=== PATIENT | male | born 1955 | race Caucasian/White ===

== ENCOUNTER 2017-04-25 14:04 | Inpatient (IN) | payer BC, OTHER ==
[~2017-04-25] VITALS: Ht 167.6 cm; Wt 68.0 kg
[2017-04-25] MEDS ORDERED: NICOTINE POLACRILEX 4 MG GUM-PK OF TEN BC PRN (20:30)
[2017-04-25] MEDS ORDERED: ONDANSETRON ODT 4 MG TAB.RAPDIS SL PRN (20:30)
[2017-04-25] MEDS ORDERED: MIRALAX 17 GM POWD.PACK PO PRN (20:30)
[2017-04-25] MEDS ORDERED: LORAZEPAM 2 MG/1 ML VIAL IM PRN (20:30)
[2017-04-25] MEDS ORDERED: LOPERAMIDE HCL 2 MG CAPSULE PO PRN ×2 (20:30)
[2017-04-25] MEDS ORDERED: MAG HYDROX/AL HYDROX/SIMETH 30 ML LIQUID UDC PO PRN (20:30)
[2017-04-25] MEDS ORDERED: MAGNESIUM HYDROXIDE 30 ML LIQUID UDC PO PRN (20:30)
[2017-04-25] MEDS ORDERED: LORAZEPAM 1 MG TABLET PO PRN ×2 (20:30)
[2017-04-25] MEDS ORDERED: ONDANSETRON 4 MG/2 ML VIAL IM PRN (20:30)
[2017-04-25] MEDS ORDERED: NICOTINE 14 MG/24HR PATCH TD PRN (20:30)
[2017-04-25] MEDS ORDERED: DICYCLOMINE HCL 20 MG TABLET PO PRN (20:30)
[2017-04-25 21:57] LABS: BASOPHILS % (AUTO) 0.8 % (0.0-2.0); EOSINOPHILS # (AUTO) 0.5 K/uL (0.0-0.7); EOSINOPHILS % (AUTO) 9.7 % (0.0-7.0); HEMATOCRIT 44.2 % (36.7-47.1); LYMPHOCYTES # (AUTO) 1.4 K/uL (20.0-40.0); LYMPHOCYTES % (AUTO) 25.7 % (20.5-51.5); MEAN CORPUSCULAR HEMOGLOBIN 31.7 uug (23.8-33.4); MEAN CORPUSCULAR HGB CONC 34 g/dL (32.5-36.3); MEAN CORPUSCULAR VOLUME 93.4 fL (73.0-96.2); MONOCYTES # (AUTO) 0.8 K/uL (2.0-10.0); MONOCYTES % (AUTO) 14.5 % (0.0-11.0); NEUTROPHILS # (AUTO) 2.6 K/uL (1.8-8.9); NEUTROPHILS % (AUTO) 49.3 % (38.5-71.5); PLATELET COUNT (AUTO) 240 K/uL (152-348); RED BLOOD CELL COUNT(AUTO) 4.73 MIL/uL (4.06-5.63); WHITE BLOOD COUNT (AUTO) 5.3 K/uL (3.6-10.2)
[2017-04-25] MEDS ORDERED: LORAZEPAM 1 MG TABLET PO SCH (22:00)
[2017-04-25] MEDS ORDERED: THIAMINE HCL 200 MG/2 ML VIAL IM ONE (22:00)
--- NOTE | 2017-04-25 22:00 | NUR ---
PRE - ADMISSION NOTE : Patient is 61 year old male came to [facility] for supervised withdrawal from alcohol on 04/25/2017. Pt. is NKA, FULL CODE, on Reg.Diet. He denies history of seizures , confirms history of passive SI in May 2014 after divorce , history of withdrawal induced delirium, history of accidental intoxication-induced overdoses. His Primary Care Provider is in [place], [place]. Longest sober period was 2 years, [id number]. He states his alcohol use has negatively affected his social, mental and professional life. Upon assessment, pt is alert and oriented x4, speech is clear and audible. Pt noted to be anxious, restless, worried, intoxicated without acute withdrawal signs. Heart rate regular. Denies chest pain or SOB. PERRLA, breathing is even and unlabored, lung sounds clear. Denies nausea, vomiting, tactile disturbances, visual or auditory hallucinations at this time. Abdomen is soft and non-distended. Bowel sounds present in all quadrants, last BM 04/25/17. Pt reports that BM is regular. Pt's skin is warm, dry and intact, no open skin damages. RQ=861/100, HR=97, RR=16, Spo2=97%, denies pain. Ltelkj=[id number], Height=56. CIWA=9. Pt. will be admitted to the unit.
[2017-04-25 22:09] LABS: *AMPHETAMINE, URINE NEGATIVE (NEGATIVE); *BARBITURATE, URINE NEGATIVE (NEGATIVE); *CANNABINOID, URINE NEGATIVE (NEGATIVE); *COCCAINE, URINE NEGATIVE (NEGATIVE); *OPIATE, URINE POSITIVE (NEGATIVE); *PHENCYCLIDINE SCREEN,URINE NEGATIVE (NEGATIVE)
[2017-04-25 22:11] LABS: ALANINE AMINOTRANSFERASE 24 U/L (16-63); ALKALINE PHOSPHATASE 72 U/L (50-136); AMYLASE 41 U/L (25-115); ASPARTATE AMINOTRANSFERASE 20 U/L (15-37); BILIRUBIN,TOTAL 0.3 mg/dL (0.2-1.0); CARBON DIOXIDE 29 mmol/L (21-32); ETHANOL < 3 MG/DL (0-0); GLUCOSE 90 mg/dL (74-106); MAGNESIUM 2.1 mg/dL (1.8-2.4); TOTAL PROTEIN, SERUM 7.8 g/dL (6.4-8.2); UREA NITROGEN, BLOOD 19 mg/dL (7-18)
[2017-04-25 22:29] LABS: CHLORIDE 105 mmol/L (98-107)
[2017-04-25] MEDS: diphenhydrAMINE 50 MG CAPSULE PO PRN (22:48)
[2017-04-25] MEDS: CLONIDINE HCL 0.1 MG TABLET PO PRN (22:49)
--- NOTE | 2017-04-25 23:00 | NUR ---
PRN BENADRYL, CATAPRES Pt. complains of difficulty falling asleep, insomnia, TL=636/100. PRN BENADRYL, CATAPRES given as ordered. Safety measures in place : bed on lowest position with side rails x2 up for safety, call light within reach. Will continue to monitor closely and offer help.
--- NOTE | 2017-04-25 23:30 | NUR ---
ADMISSION NOTE : Patient is 61 year old male admitted for supervised withdrawal from alcohol on 04/25/2017. Pt. is NKA, FULL CODE, on Reg.Diet. He denies history of seizures , confirms history of passive SI in May 2014 after divorce , his Primary Care Provider is in [place], [place]. Pt. brought his home meds, see PC infos for details. Medications have been reconciled. Longest sober period was 2 years, [id number]. He states his alcohol use has negatively affected his social, mental and professional life. Upon assessment, pt is alert and oriented x4, speech is clear and audible. Pt noted to be anxious, restless, worried, intoxicated without acute withdrawal signs. Heart rate regular. Denies chest pain or SOB. PERRLA, breathing is even and unlabored, lung sounds clear. Denies nausea, vomiting, tactile disturbances, visual or auditory hallucinations at this time. Abdomen is soft and non-distended. Bowel sounds present in all quadrants, last BM 04/25/17. Pt reports that BM is regular. Pt's skin is warm, dry and intact, no open skin damages. XC=246/100, HR=97, RR=16, Spo2=97%, denies pain. Ohpsxp=[id number], Height=56. CIWA=9. Pt oriented to room and unit. Safety measures in place, side rails up x 2 . Will continue to monitor closely and offer help. Substance use history per patient report: 1) alcohol (whiskey) - pt. reports last use was on 04/25/17, drinking 500ml daily for the past 2years., started drinking s.1997. Pt. smokes 20 cig. QD TX history: Multiple attempts of detox , last one - Outpatient withdrawal management (under PCP supervision). Past Medical History : HTN, cervical spine fusion, wrist surgery, percutaneous coronary intervention with stent placement x4; depression, history of withdrawal induced delirium, insomnia, history of accidental intoxication-induced overdoses , CAD. Family History : Alcoholism, Obesity, HTN, DM II , heart disease.
[2017-04-26] VITALS (7 sets, daily range): BP systolic 126–160; BP diastolic 85–100
--- NOTE | 2017-04-26 | NUR ---
RE-ASSESSMENT JORGE SIMMS Pt. is sleeping, RR=16, unlabored and even . Safety measures in place : bed on lowest position with side rails x2 up for safety, call light within reach. Will continue to monitor closely and offer help.
[2017-04-26] MEDS ORDERED: [UNRECOGNIZED DRUG - SUPPLY] (04:13)
[2017-04-26] MEDS ORDERED: MELA5TAB PO (04:13)
[2017-04-26] MEDS ORDERED: AMLO5TAB4 PO (04:13)
[2017-04-26] MEDS ORDERED: OMEP20TA20 PO (04:13)
[2017-04-26] MEDS ORDERED: ASPI81TA31 PO (04:13)
--- NOTE | 2017-04-26 06:31 | NUR ---
END OF SHIFT NOTE : Patient is 61 year old male admitted for supervised withdrawal from alcohol on 04/25/2017. He denies history of seizures , confirms history of passive SI in May 2014 after divorce . Pt. placed on 5 day Subutex and Ativan taper. Pt. is compliant with a TX plan, PRNs given during nightman : BENADRYL,. CIWA, taken when pt. was awake, last CIWA=9, at 04:00. Prnwva=437 , voided x2, slept=3 hours. Safety measures in place : bed on lowest position with side rails x2 up for safety, all light within reach. Will continue to monitor closely and offer help.
--- NOTE | 2017-04-26 07:47 | NUR ---
Start of shift note- Patient is 61 year old male admitted for supervised withdrawal from alcohol on 04/25/2017. He denies history of seizures, confirms history of passive SI in May 2014 after divorce . Pt. placed on 5 day Subutex and Ativan taper. Pt in bed appears to be asleep. Arousable to name. Denies c/o N/V/diarrhea. Respirations even and unlabored. Pt. 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 Last CIWA-9. Safety measures in place : bed on lowest position with side rails x2 up for safety, all light within reach. Will continue to monitor closely and offer help. Addendum: 04/26/17 at 1109 by Shayna Rodríguez RN not on subutex, only Ativan taper
[2017-04-26] MEDS: FOLIC ACID 1 MG TABLET PO SCH (08:48)
[2017-04-26] MEDS: MULTIVITAMINS,THERAPEUTIC TABLET PO SCH (08:48)
[2017-04-26] MEDS: THIAMINE HCL 100 MG TABLET PO SCH (08:48)
[2017-04-26] MEDS: LORAZEPAM 1 MG TABLET PO SCH ×4 (08:59→21:14)
[2017-04-26] MEDS ORDERED: TUBERCULIN,PURIF.PROT.DERIV. 5 TU/0.1 ML TEST ID ONE (09:00)
[2017-04-26] MEDS: OMEPRAZOLE 40MG PO SCH (10:06)
[2017-04-26] MEDS: AMLODIPINE 5MG PO SCH (10:06)
[2017-04-26] MEDS: ESCITALOPRAM OXALATE 10 MG TABLET PO SCH (12:08)
[2017-04-26] MEDS: IBUPROFEN 400 MG TABLET PO PRN (12:23)
--- NOTE | 2017-04-26 12:24 | NUR ---
PRN Ibuprofen 400 mg PO for pain. Pt c/o headache #6
[2017-04-26] MEDS: CLONIDINE HCL 0.1 MG TABLET PO PRN (13:14)
--- NOTE | 2017-04-26 13:14 | NUR ---
PRN Catapress 0.1 mg for BP 141/98. Will continue to monitor
--- NOTE | 2017-04-26 13:17 | NUR ---
Reassess Ibuprofen, pt states headache decreased to #4/10. Medication effective.
--- NOTE | 2017-04-26 14:15 | NUR ---
Reassess Catapres, BP improved now 134/88, HR 106.
--- NOTE | 2017-04-26 18:17 | NUR ---
Nursing note- Pt slipped in his room. Slipped against wall hit right shoulder, landed on right knee. Pt denies c/o dizziness. VSS 138/87 HR 99, resp 18, sat 99%. Pt states he did not hit his head.
--- NOTE | 2017-04-26 18:41 | NUR ---
End of shift note- Patient is 61 year old male admitted for supervised withdrawal from alcohol on 04/25/2017. He denies history of seizures, confirms history of passive SI in May 2014 after divorce . Pt. placed on 5 day Ativan taper. Tolerating well. Pt emotional and tearful at times. Pt. is compliant with a TX plan. PRN ibuprofen, Catapres given and effective. Pt attends group therapy. At 1600 last CIWA= 7. Adequate PO fluid intake 2472 ml, void X 3, BM X 1. Safety measures in place : bed on lowest position with side rails x2 up for safety, all light within reach. Will continue endorse to PM shift.
--- NOTE | 2017-04-26 19:30 | NUR ---
START OF SHIFT NOTE : Patient is 61 year old male admitted for supervised withdrawal from alcohol on 04/25/2017. He denies history of seizures , confirms history of passive SI in May 2014 after divorce . Pt. placed on 5 day Subutex and Ativan taper, tolerates well. 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 CIWA taken when pt. was awake, last CIWA=7, at 16:00. Pt. doesnt complain of pain after his fall at 18:15, but complains of increased level of anxiety , difficulty falling and staying asleep, body ache. He is anxious, has sad facial expression, mild tremor visible. Safety measures in place : bed on lowest position with side rails x2 up for safety, all light within reach. Will continue to monitor closely and offer help.
--- NOTE | 2017-04-26 21:00 | NUR ---
PRN BENADRYL Pt. complains of difficulty falling asleep, insomnia. PRN BENADRYL given as ordered. Safety measures in place : bed on lowest position with side rails x2 up for safety, call light within reach. Will continue to monitor closely and offer help.
[2017-04-26] MEDS: diphenhydrAMINE 50 MG CAPSULE PO PRN (21:13)
--- NOTE | 2017-04-26 22:00 | NUR ---
RE-ASSESSMENT MENDEZ Pt. is sleeping, RR=16, unlabored and even . Safety measures in place : bed on lowest position with side rails x2 up for safety, call light within reach. Will continue to monitor closely and offer help.
[2017-04-27 04:00] VITALS: BP 127/91
--- NOTE | 2017-04-27 06:25 | NUR ---
END OF SHIFT NOTE : Patient is 61 year old male admitted for supervised withdrawal from alcohol on 04/25/2017. He denies history of seizures , confirms history of passive SI in May 2014 after divorce . Pt. placed on 5 day Subutex and Ativan taper, tolerating well. Pt. is compliant with a TX plan, PRNs given during mold shifter : BENADRYL. CIWA, taken when pt. was awake, last CIWA=8, at 04:00. [place]=745 , voided x2, BM-x1, slept=7 hours. Safety measures in place : bed on lowest position with side rails x2 up for safety, all light within reach. Will continue to monitor closely and offer help.
--- NOTE | 2017-04-27 07:45 | NUR ---
START OF SHIFT Client is in room, he is a/o x 4, he has difficulty concentrating, he presents with anxious mood, flat affect, restless, clammy skin, flushed face. Client is unshaven with strong body odor, encourage client to take a shower after he take his morning medications. Client reports cold/chills, tremors, sweating, stomach cramps, nausea, restless legs, and fatigue. Encourage client to increase PO fluid for rehydration and to facilitate detox. Encourage client to attend group therapy to learn skills to maintain sober. Last HARRYWA 8 @ 1999. PRN Benadryl 50mg PO administered for inability to sleep, he slept 7 hrs. Seizure precautions rendered. Call light within reach.
[2017-04-27] MEDS: FOLIC ACID 1 MG TABLET PO SCH (08:27)
[2017-04-27] MEDS: LORAZEPAM 1 MG TABLET PO SCH ×3 (08:27→21:16)
[2017-04-27] MEDS: THIAMINE HCL 100 MG TABLET PO SCH (08:28)
[2017-04-27] MEDS: ESCITALOPRAM OXALATE 10 MG TABLET PO SCH (08:28)
[2017-04-27] MEDS: MULTIVITAMINS,THERAPEUTIC TABLET PO SCH (08:28)
[2017-04-27] MEDS: MELATONIN 10MG PO PRN (08:29)
[2017-04-27] MEDS: AMLODIPINE 5MG PO SCH (08:29)
[2017-04-27] MEDS: OMEPRAZOLE 40MG PO SCH (08:29)
[2017-04-27 08:55] VITALS: BP 134/95
[2017-04-27 12:36] VITALS: BP 138/86
--- NOTE | 2017-04-27 14:15 | NUR ---
PRN Imodium 4mg PO administered for diarrhea, client had loose stool x 2 for the past hr. Call light within reach.
--- NOTE | 2017-04-27 15:15 | NUR ---
Reassess PRN Imodium 4mg , client denies any more episodes of loose stools.
[2017-04-27 16:55] VITALS: BP 136/89
--- NOTE | 2017-04-27 19:12 | NUR ---
END OF SHIFT Endorse client to incoming nurse, Client is a/o x 4, he continues to present with anxious mood, flat affect, restless, clammy skin, flushed face, cold/chills, tremors, sweating, stomach cramps, nausea, restless legs, and fatigue. Client consumes ~50% of meals. Adequate PO fluid intake 1640mL, void x 2, stool x 2. PRN Imodium 4mg PO administered for diarrhea, noted effective. Client is compliant with group therapy. Last CIWA 13 @ 1600. Seizure precautions rendered. Call light within reach.
--- NOTE | 2017-04-27 19:30 | NUR ---
START OF SHIFT NOTE : Patient is 61 year old male admitted for supervised withdrawal from alcohol on 04/25/2017. He denies history of seizures , confirms history of passive SI in May 2014 after divorce . Pt. placed on 5 day Subutex and Ativan taper, tolerates well. PRN given during can feeder : IMODIUM x2. CIWA taken when pt. was awake, last CIWA=15, at 16:00. Pt. complains of increased level of anxiety , difficulty falling and staying asleep, wakes up frequently, tremor, body ache. He is anxious, has sad facial expression, mild tremor visible, volatile, poor impulse control,. Safety measures in place : bed on lowest position with side rails x2 up for safety, all light within reach. Will continue to monitor closely and offer help.
[2017-04-27 20:00] VITALS: BP 138/87
[2017-04-27] MEDS ORDERED: LORAZEPAM 1 MG TABLET PO PRN ×2 (21:00)
[2017-04-27] MEDS: diphenhydrAMINE 50 MG CAPSULE PO PRN (21:15)
--- NOTE | 2017-04-28 | NUR ---
Motrin and Tylenol Reassessment: Pt still c/o 06/25 shoulder pain but goes away when not active. Encouraged pt to rest to promote healing environment. Pt verbalized understanding. Will continue to monitor. Addendum: 04/29/17 at 0625 by MALORIE SCANLON RN ERROR WRONG DATE
[2017-04-28 03:06] LABS: HEPATITIS B SURFACE AG Negative (Negative)
--- NOTE | 2017-04-28 06:29 | NUR ---
END OF SHIFT NOTE : Patient is 61 year old male admitted for supervised withdrawal from alcohol on 04/25/2017. He denies history of seizures , confirms history of passive SI in May 2014 after divorce . Pt. placed on 5 day Subutex and Ativan taper, tolerating well. Pt. is compliant with a TX plan, PRNs given during plant operator/shift supervisor : BENADRYL. CIWA, taken when pt. was awake, last CIWA=9, at 05:00. Intake=1,050 , voided x2, slept=7 1/2 hours. Safety measures in place : bed on lowest position with side rails x2 up for safety, all light within reach. Will continue to monitor closely and offer help.
--- NOTE | 2017-04-28 07:34 | NUR ---
START OF SHIFT Client is in room, a/o x 4, he presents with anxious mood, flat affect, moist skin, fine tremors, and difficulty concentrating. Client reports joint pain on upper extremities 6/10, upset stomach, nausea, decrease appetite, sweating, and fatigue. Client decline Tylenol or Motrin at this time, stating, "I am going to take a shower and that should probably help, if not I will ask you for some pain medication." Encourage client to increase PO fluid intake as tolerated to facilitate detox. Encourage client to attend group therapy to learn skills to maintain sober. Client is on third of 5 day Ativan taper for alcohol withdrawal. Per ongoing nurse, last WA 9 @ 0400. PRN Benadryl 50mg PO administered for inability to sleep, he slept 7.5 hrs. Seizure precautions rendered. Call light within reach.
[2017-04-28 08:00] VITALS: BP 132/103
--- NOTE | 2017-04-28 08:30 | NUR ---
Zero induration noted on L forearm PPD Test.
[2017-04-28] MEDS: FOLIC ACID 1 MG TABLET PO SCH (08:36)
[2017-04-28] MEDS: THIAMINE HCL 100 MG TABLET PO SCH (08:36)
[2017-04-28] MEDS: ACETAMINOPHEN 325 MG TABLET PO PRN ×3 (08:36→20:57)
--- NOTE | 2017-04-28 08:36 | NUR ---
PRN Tylenol 650mg PO administered for bilateral shoulder pain 07/26. call light within reach.
[2017-04-28] MEDS: MULTIVITAMINS,THERAPEUTIC TABLET PO SCH (08:37)
[2017-04-28] MEDS: OMEPRAZOLE 40MG PO SCH (08:37)
[2017-04-28] MEDS: AMLODIPINE 5MG PO SCH (08:37)
[2017-04-28] MEDS ORDERED: LORAZEPAM 1 MG TABLET PO SCH ×2 (09:00→21:00)
[2017-04-28] MEDS ORDERED: ESCITALOPRAM OXALATE 10 MG TABLET PO SCH (09:00)
--- NOTE | 2017-04-28 09:36 | NUR ---
Reassess PRN Tylenol 650mg, client reports relief from bilateral shoulder pain 0/10. call light within reach.
--- NOTE | 2017-04-28 11:35 | NUR ---
Endorsed client to RN Client continues to present with anxious mood, flat affect. Last CIWA 13 @ 0800. PRN Tylenol 650mg PO administered for shoulders pain 07/26, noted effective. Client consumes ~50% of meals. Client is compliant with group therapy. Seizure precautions rendered. call light within reach.
--- NOTE | 2017-04-28 11:35 | NUR ---
TRANSFER OF CARE RECEIVED REPORT ON PT WHO IS A 61 M ADMITTED FOR ETOH MEDICALLY SUPERVISED W/D. PT IS ON A 5 DAY ATIVAN TAPER STARTED ON THE AND TOLERATING WELL. PT IS A/OX4, RESPIRATIONS EVEN AND UNLABORED. PT PRESENTS FACIAL FLUSHING, RACING THOUGHTS, ANXIETY, RESTLESSNESS, EMOTIONAL VOLATILITY, HYPERACTIVE, SENSITIVITY TO LIGHT, DIAPHORESIS. PER NURSE: LAST CIWA 13 @0800 AND TYLENOL 650 MG GIVEN FOR BILATERAL SHOULDER PAIN THIS AM AND EFFECTIVE. ENCOURAGED PT TO INCREASE FLUIDS TO PROMOTE HYDRATION; PT VERBALIZED UNDERSTANDING. SIDE RAILS UPX2 AND PADDED, BED IN LOW POSITION. CALL LIGHT WITHIN REACH. WILL CONTINUE TO MONITOR AND PROVIDE SUPPORT.
[2017-04-28 12:00] VITALS: BP 131/96
[2017-04-28] MEDS: LORAZEPAM 1 MG TABLET PO SCH ×2 (12:09→16:41)
--- NOTE | 2017-04-28 12:09 | NUR ---
PRN PT C/O BILATERAL SHOULDER PAIN 5/10. TYLENOL 650 MG PO PRN GIVEN, WILL CONTINUE TO MONITOR.
--- NOTE | 2017-04-28 13:09 | NUR ---
REASSESSMENT PT REPORTED MEDICATION EFFECTIVE PAIN NOW 0/10. WILL CONTINUE TO MONITOR.
[2017-04-28 16:30] VITALS: BP 137/89
--- NOTE | 2017-04-28 18:33 | NUR ---
END OF SHIFT PTS CIWA WERE 13 THROUGHOUT SHIFT. PT ATTENDED AND PARTICIPATED IN ALL GROUPS AND ACTIVITIES. PT HAS BEEN COMPLIANT WITH THERAPEUTIC PLAN OF CARE. PT IS ON A 5 DAY ATIVAN STARTED ON 04/26/17 AND TOLERATING IT WELL. PT HAD TYLENOL 650 MG PO PRN TWICE DURING SHIFT FOR BILATERAL SHOULDER PAIN; PT REPORTED MED EFFECTIVE. PT IS CONSUMING 100% OF MEALS. ALL SAFETY MEASURES IN PLACE. WILL GIVE ENDORSEMENT AND PERTINENT INFO TO MARINE CONSULTANT NURSE.
--- NOTE | 2017-04-28 19:30 | NUR ---
Start of Shift Notes: Report received from day shift nurse. Per day shift nurse last CIWA was 13 at 1630. Upon start of shift pt was participating in group activity. Pt appears fidgety and restless. Pts expression is anxious, worried. During assessment, pt is AOx3.Lung sounds clear bilaterally. Radial pulse is tachycardic due to smoking a few minutes ago. Abdomen soft and non-tender. Abdominal sounds active x4 quadrants. Skin is warm and dry. Pt complains of 5/10 pain on right shoulder at this time. Pt is currently on Ativan taper to manage withdrawal symptoms.Bed in lowest position. Side rails up x2. Call light functioning and within reach. All needs attended and met. Will continue to monitor.
[2017-04-28 20:00] VITALS: BP 138/96
[2017-04-28] MEDS: diphenhydrAMINE 50 MG CAPSULE PO PRN (20:57)
[2017-04-28] MEDS: IBUPROFEN 400 MG TABLET PO PRN (20:57)
--- NOTE | 2017-04-28 20:57 | NUR ---
Benadryl PRN, Motrin PRN, and Tylenol PRN: Pt requested sleep medication. Benadryl PRN given as ordered. Pt c/o 5/10 R shoulder pain that was unrelieved by an earlier dose of Tylenol. Motrin PRN and Tylenol PRN given for pain. Will continue to monitor.
[2017-04-29] VITALS: BP 136/100
--- NOTE | 2017-04-29 | NUR ---
Motrin and Tylenol Reassessment: Pt still c/o 5/10 shoulder pain but goes away when not active. Encouraged pt to rest to promote healing environment. Pt verbalized understanding. Will continue to monitor.
[2017-04-29] MEDS: CLONIDINE HCL 0.1 MG TABLET PO PRN ×3 (00:44→20:54)
[2017-04-29] MEDS: MELATONIN 10MG PO PRN (00:44)
--- NOTE | 2017-04-29 00:44 | NUR ---
Clonidine PRN and Melatonin PRN: Pt unable to sleep. Melatonin PRN given as ordered. Pt noted with 136/100 BP. Clonidine PRN given as ordered. Will continue to monitor.
[2017-04-29 01:30] VITALS: BP 129/96
--- NOTE | 2017-04-29 01:30 | NUR ---
Clonidine Reassessment: BP 129/96. Clonidine effective.
--- NOTE | 2017-04-29 06:47 | NUR ---
End of Shift Notes: Pt currently in bed with eyes closed. Pt slept for 5 hours. Pt c/o pain and inability to sleep during shift. PRN Benadryl, Melatonin, Motrin, and Tylenol given as ordered. Pt had elevated BP during shift. PRN Clonidine given as ordered. Pts last CIWA was 7 at 0000. Pt continues on ativan taper to manage withdrawal symptoms. During shift pt was anxious and worried. Allowed pt to verbalize feelings. Fall and Sz precautions observed. Bed in lowest position. Side rails up x2. Call light functioning and within reach. All needs attended and met. Will endorse to day shift nurse.
--- NOTE | 2017-04-29 08:00 | NUR ---
START OF SHIFT Client is in bed, in a position, a/o x4, he presents with anxious mood, difficulty concentrating, gets startled easily, clammy skin, tremors felt not observed. Client reports upset stomach, nausea, decreased appetite, cold/chills, a feeling of panic, restless legs, body aches, and fatigue./ Encourage client to increase PO fluid an tolerated to facilitate detox. Encourage client to attend group therapy to learn skills to maintain sober. Per ongoing nurse client rcvd PRN Motrin 400mg PO, Tylenol 650 mg PO for L shoulder pain, Clonidine for increased BP 136/100, after an hour BP 129/96. PRN Benadryl 50mg PO for inability to sleep, client slept 5 hrs. Last CIWA 7 @ 2400. Seizure precautions rendered. Call light within reach.
[2017-04-29 08:06] VITALS: BP 122/87
[2017-04-29] MEDS: AMLODIPINE 5MG PO SCH (09:54)
[2017-04-29] MEDS: OMEPRAZOLE 40MG PO SCH (09:54)
[2017-04-29] MEDS: FOLIC ACID 1 MG TABLET PO SCH (09:54)
[2017-04-29] MEDS: IBUPROFEN 400 MG TABLET PO PRN ×2 (09:55→20:54)
[2017-04-29] MEDS: THIAMINE HCL 100 MG TABLET PO SCH (09:55)
[2017-04-29] MEDS: LORAZEPAM 1 MG TABLET PO SCH ×2 (09:55→15:15)
[2017-04-29] MEDS: ACETAMINOPHEN 325 MG TABLET PO PRN ×2 (09:55→20:54)
[2017-04-29] MEDS: MULTIVITAMINS,THERAPEUTIC TABLET PO SCH (09:55)
--- NOTE | 2017-04-29 09:55 | NUR ---
PRN Motrin 400mg PO PRN, Tylenol 650mg PO administered for R shoulder pain 07/26. Call light within reach.
[2017-04-29] MEDS ORDERED: ESCITALOPRAM OXALATE 10 MG TABLET PO ONE ×2 (10:00)
--- NOTE | 2017-04-29 10:55 | NUR ---
Reassess PRN Motrin 400mg, Tylenol 650mg, client reports relief from R shoulder pain 0/10. Call light within reach.
--- NOTE | 2017-04-29 11:37 | NUR ---
PRN Clonidine 0.1mg PO administered BP 143/90, client denies any headache. Call light within reach. Addendum: 04/29/17 at 1925 by IDA LEMUS RN Wrong client
--- NOTE | 2017-04-29 11:37 | NUR ---
LILA Vistaril 50mg PO administered for anxiety, client is pacing in the hallway. He stated, "I can not wait to see my and go home." Addendum: 04/29/17 at 1926 by IDA LEMUS RN Wrong client
--- NOTE | 2017-04-29 11:52 | NUR ---
Discharge note Client was admitted for withdrawal from alcohol. Client has a recent CIWA 4. LBM was 04/28/17. Client denies any SI/HI. Client verbalized her understanding of the discharge instructions, he said, "I still feel a little anxious, but it's because I miss my family too much." Client discharge instructions, prescriptions, and all belongings returned to client. All needs addressed at this time. Client ambulated off of unit, he left facility via private car with Minerva () to Renata LEUNG.. Addendum: 04/29/17 at 1817 by IDA LEMUS RN Wrong Client
--- NOTE | 2017-04-29 12:17 | NUR ---
PRN Clonidine 0.1mg PO administered for BP 112/91. Call light within reach.
[2017-04-29 12:29] VITALS: BP_SYST 112; BP_DIAS 90; BP_DIAS 91
--- NOTE | 2017-04-29 13:17 | NUR ---
Reassess PRN Clonidine 0.1mg, BP 108/83. Call light within reach.
[2017-04-29 16:00] VITALS: BP 120/89
--- NOTE | 2017-04-29 19:01 | NUR ---
END OF SHIFT Client is in group therapy, he continues to present with anxious, irritable mood, flat affect, fine tremors, clammy skin, decreased appetite, cold/chills, a feeling of panic, restless legs, body aches, and fatigue. Adequate PO fluid intake 4091mL, void x 2. Client is compliant with group therapy. PRN Clonidine for increased BP 112/91, decrease BP 108/83. Last CIWA 12 @ 1600. Seizure precautions rendered. Call light within reach.
--- NOTE | 2017-04-29 19:20 | NUR ---
START OF SHIFT Patient is a 61-year-old male admitted on 04/25/17 for ETOH (whiskey) withdrawal. Patient is currently on a 5-day Ativan taper, tolerating well; today is day 4. Patient's last CIWA was 12 per day shift. Patient received PRN Clonidine x1 for elevated BP, and PRN Tylenol and PRN Motrin earlier in the morning for right shoulder pain 6/10; all PRN medications were noted as effective by day nurse. Upon assessment, patient is alert and oriented x4, appearing slightly flushed, unshaven and irritable. Patient verbalizes feeling "agitated" today and hopes to "get some sleep tonight." Patient reports right shoulder and neck pain of 5/10 at this time. Patient is on fall and seizure precautions with no history of seizure. Safety measures in place, side rails up x2, bed locked in lowest position, call light within reach. Will continue to monitor.
[2017-04-29 20:00] VITALS: BP 134/96
[2017-04-29] MEDS: diphenhydrAMINE 50 MG CAPSULE PO PRN (20:54)
--- NOTE | 2017-04-29 20:54 | NUR ---
PRN MEDICATIONS Patient reports right shoulder pain of 5/10 on pain scale; PRN Tylenol and Motrin given PO. Patient has a current BP of 134/96; PRN Clonidine given PO for elevated BP. Patient reports difficulty sleeping and requests sleep aid; PRN Benadryl given PO. Safety measures in place, side rails up x2, bed locked in low position, call light within reach. Will monitor for effectiveness.
[2017-04-29] MEDS ORDERED: LORAZEPAM 1 MG TABLET PO SCH (21:00)
--- NOTE | 2017-04-29 21:54 | NUR ---
PRN MEDICATION REASSESSMENT Patient reports right shoulder pain of 2/10 on pain scale; PRN Tylenol and Motrin effective. Patient has a current BP of 116/81; PRN Clonidine effective. Patient states he feels "sleepy" and will "probably knock out soon." PRN Benadryl effective. Respirations even and unlabored, 14/min. Safety measures in place, side rails up x2, bed locked in low position, call light within reach. Will continue to monitor.
[2017-04-30] VITALS: BP 109/67
--- NOTE | 2017-04-30 | NUR ---
CIWA DEFERRED Midnight CIWA deferred due to patient sleeping; to be assessed and scored while pt is awake. Respirations even and unlabored, 16/min. Safety measures in place, side rails up x2, bed locked in lowest position, call light within reach. Will continue to monitor.
--- NOTE | 2017-04-30 04:00 | NUR ---
VITALS REFUSED, CIWA DEFERRED Patient refused 4AM vitals. CIWA deferred due to patient sleeping; to be assessed and scored while pt is awake. Respirations even and unlabored, 14/min. Safety measures in place, side rails up x2, bed locked in lowest position, call light within reach. Will continue to monitor.
--- NOTE | 2017-04-30 07:01 | NUR ---
END OF SHIFT Patient is a 61-year-old male admitted on 04/25/17 for ETOH (whiskey) withdrawal. Patient is currently on a 5-day Ativan taper, tolerating well; today will be day 5. Patient's last CIWA was 12. Patient received PRN Clonidine for elevated BP, PRN Tylenol and PRN Motrin for right shoulder pain 07/26, and PRN Benadryl for sleep aid; all PRN medications were noted effective. Patient slept for 8 hours, total intake was 1,890 mL, void x1, stool x1. Patient is on fall and seizure precautions with no history of seizure. Safety measures in place, side rails up x2, bed locked in lowest position, call light within reach. Will endorse to day shift.
--- NOTE | 2017-04-30 07:04 | NUR ---
Start of Shift Notes: Endorsement received from night nurse. Patient is a 61 year old male admitted for ETOH withdrawal who is currently on a 5-day Ativan taper as ordered. Patient is currently in his room. Laying in bed, eyes closed. Arousable. Alert and oriented x 4. No AV hallucinations noted. Room is unkempt and patient appears disheveled. Encouraged maintenance of personal hygiene and space. Educated patient on his current plan of care for the day and his medication regimen. Encouraged oral fluid intake and encouraged group participation to learn new skills to prevent relapse. Will continue to monitor closely and provide support. Last CI. PRN Benadryl, Tylenol, Motrin and Clonidine given during the night. Slept for 8 hours.
[2017-04-30 08:00] VITALS: BP 121/80
[2017-04-30] MEDS: LORAZEPAM 1 MG TABLET PO SCH ×2 (08:30→21:24)
[2017-04-30] MEDS: MULTIVITAMINS,THERAPEUTIC TABLET PO SCH (08:30)
[2017-04-30] MEDS: ESCITALOPRAM OXALATE 10 MG TABLET PO SCH (08:30)
[2017-04-30] MEDS: FOLIC ACID 1 MG TABLET PO SCH (08:30)
[2017-04-30] MEDS: THIAMINE HCL 100 MG TABLET PO SCH (08:30)
--- NOTE | 2017-04-30 08:30 | NUR ---
Motrin 400 mg PO given: Patient noted with complain of 5/10 right shoulder pain. Non-pharmacological interventions provided but ineffective. Medicated patient with Motrin 400 mg PO as ordered. Will monitor for effectiveness.
[2017-04-30] MEDS: IBUPROFEN 400 MG TABLET PO PRN (08:32)
[2017-04-30] MEDS: AMLODIPINE 5MG PO SCH (08:32)
[2017-04-30] MEDS: OMEPRAZOLE 40MG PO SCH (08:32)
--- NOTE | 2017-04-30 09:30 | NUR ---
Re-assessment: Motrin Patient verbalized that Motrin 400 mg PO was effective in reducing right shoulder pain. He verbalized that PL is now /.
[2017-04-30 12:00] VITALS: BP 132/96
[2017-04-30] MEDS ORDERED: HYDR25CA PO (15:48)
[2017-04-30] MEDS ORDERED: DIPH50CA37 PO (15:48)
[2017-04-30] MEDS ORDERED: IBUP-1953 PO (15:48)
[2017-04-30] MEDS ORDERED: CLON0.1T14 PO (15:48)
[2017-04-30] MEDS ORDERED: ESCI10TA PO (15:48)
[2017-04-30 16:00] VITALS: BP 135/89
--- NOTE | 2017-04-30 19:04 | NUR ---
End of Shift Notes: Patient continues to be on 5-day Ativan taper as ordered to manage symptoms related to ETOH withdrawal. Patient is currently on his 4th day of taper. VS monitored closely. No significant abnormalities noted. WIthdrawal symptoms were closely monitored. Initial CIWA 14, patient presented with anxiety, agitation, gross tremors, fatigue, faciall flushing, and sweating. No S/I or H/I noted. No AV hallucinations noted. Last CIWA 13. Medicated patient with Motrin 400 mg PO as ordered for right shoulder pain with help after 1 hour. Per patient, Ativan has been effective in reducing her withdrawal symptoms. Patient is encouraraged to have appropriate behavior and conduct. Patient was able to participate in group and activities due to his withdrawal symptoms. All needs met and attended. WIll continue to monitor.
--- NOTE | 2017-04-30 19:12 | NUR ---
Start of shift note Received report from day shift nurse. Pt is a 61 yo male, A+Ox4, presenting to [facility] for ETOH withdrawal. Pt is on 5 day Ativan taper, tolerated well. Pt has HX of Depression and HTN which will be monitored during shift. Pt noted with anxiety, restlessness, and agitation. Respirations even and unlabored. Will continue to monitor.
[2017-04-30 20:14] VITALS: BP 148/98
[2017-05-01 00:38] VITALS: BP 123/87
[2017-05-01 04:36] VITALS: BP 128/92
--- NOTE | 2017-05-01 07:00 | NUR ---
End of shift note Pt was continuously noted with anxiety, agitation, and restlessness. Pt was out of room frequently to go smoke on smoking patio, to get food from kitchen, and to interact with other patients in recreational room. Pt was not given any PRNs during shift. Pt slept for a total of 7 HRS. Last CIWA: 9 @0400. Respirations even and unlabored. Will endorse to day shift nurse.
--- NOTE | 2017-05-01 07:05 | NUR ---
Start of Shift Can Runner received report on 61 year old male admitted to [facility] on 04/25/17 for medicall managed symptom relief of ETOH withdrawals. Pt reports NKDA, full code and regular diet. Pt reports a PMH of depression, HTN, 4 stents and CAD. Pt has a history of withdrawal induced delirium, without seizure. Pt has been placed on 5 day Ativan taper and has been tolerating well with Last CIWA 7, recorded at 0400, per NOC report. Can Runner encounters pt in his room resting in bed. Pt is A/O x4 and makes his needs known. Clear of thought and speech. Calm and cooperative. Polite, social and pleasant. Bed in low position with wheels locked and side rails up x2. Will continue to monitor, support and encourage according to plan of care.
[2017-05-01] MEDS: OMEPRAZOLE 40MG PO SCH (08:37)
[2017-05-01] MEDS: IBUPROFEN 400 MG TABLET PO PRN ×2 (08:38→22:52)
[2017-05-01] MEDS: MULTIVITAMINS,THERAPEUTIC TABLET PO SCH (08:38)
[2017-05-01] MEDS: FOLIC ACID 1 MG TABLET PO SCH (08:38)
[2017-05-01] MEDS: ESCITALOPRAM OXALATE 10 MG TABLET PO SCH (08:38)
[2017-05-01] MEDS: THIAMINE HCL 100 MG TABLET PO SCH (08:38)
[2017-05-01] MEDS: AMLODIPINE 5MG PO SCH (08:38)
--- NOTE | 2017-05-01 08:40 | NUR ---
LILA Jacobsen Pt complains of shoulder pain related to old injury. Pt has attempted non-pharmacological intervention and now requests medication. Guide Changer administers medication per order, with pt tolerating well. Will continue to monitor, support and encourage according to plan of care.
[2017-05-01 08:54] VITALS: BP 116/75
[2017-05-01] MEDS ORDERED: LORAZEPAM 1 MG TABLET PO SCH (09:00)
--- NOTE | 2017-05-01 09:40 | NUR ---
PRN Re-Assessment Pt endorses relief, rating pain 3/10, " this is what I am used to." Will continue to monitor, support and encourage [id number] to plan of care.
[2017-05-01 12:20] VITALS: BP 127/87
[2017-05-01 16:45] VITALS: BP 133/95
--- NOTE | 2017-05-01 19:08 | NUR ---
End of Shift Portfolio Director provided report on 61 year old male admitted to [facility] on 04/25/17 for medically managed symptom relief of ETOH withdrawals. Pt reports NKDA, full code and regular diet. Pt reports a PMH of depression, HTN, 4 stents and CAD. Pt has a history of withdrawal induced delirium, without seizure. Pt has completed his Ativan taper in anticipation of discharge tomorrow. Last CIWA 4 at 1600. Pt is A/O x4 and makes his needs known. Clear of thought and speech. Calm and cooperative. Polite, social and pleasant. Pt is gregarious, bright, and enjoys life. Happy go alexandr. Bed in low position with wheels locked and side rails up x2. Will continue to monitor, support and encourage according to plan of care.
--- NOTE | 2017-05-01 19:11 | NUR ---
Start of shift note Received report from day shift nurse. Pt is a 61 yo male, A+Ox4, presenting to [facility] for ETOH withdrawal. Pt noted with anxiety, restlessness, and agitation. Pt has HX of HTN and depression which will be monitored during shift. Pt has completed 5 day Ativan taper, tolerated well, and is due for discharge tomorrow. Respirations even and unlabored. Will continue to monitor.
[2017-05-01 20:27] VITALS: BP 130/98
[2017-05-01] MEDS: MELATONIN 10MG PO PRN (22:52)
--- NOTE | 2017-05-01 22:52 | NUR ---
PRN Motrin and Melatonin Pt c/o Right shoulder pain 7/10 and inability to sleep and requested for PRN Motrin and Melatonin. Medications given and tolerated well. Will reassess within 1 HR. Will continue to monitor.
--- NOTE | 2017-05-01 23:47 | NUR ---
PRN Motrin and Melatonin Reassessment Medications effective. Pt expresses reduction of pain to 4/10 and is resting well in bed. No s/s of ASE noted at this time. Respirations even and unlabored. Will continue to monitor.
[2017-05-02 00:34] VITALS: BP 117/85
[2017-05-02 04:12] VITALS: BP 121/87
--- NOTE | 2017-05-02 06:50 | NUR ---
End of shift note Pt was continuously noted to be anxious, agitated, and restless. Pt was out of room frequently to go smoke on smoking patio, to get food from kitchen, and to interact with other patients in recreational room. Pt has completed 5 day Ativan, tolerated well, and is due for discharge today. Pt was given PRN Motrin and Melatonin @2252. Pt slept for a total of 8 HRS. Last CIWA: 5 @0400. Respirations even and unlabored. Will endorse to day shift nurse.
--- NOTE | 2017-05-02 07:59 | NUR ---
Start of shift-Pt 62 y/o admitted for medically supervised ETOH withdrawal. Pt out of room ambulating, socializing, A/O X4, in good spirits, ready to be discharged Pt has completed 5 day Ativan, tolerated well. Pt was given PRN Motrin and Melatonin @2252. Pt slept for a total of 8 HRS. Last CIWA: 5 @0400. NKA, FULL CODE. Safety measures in place. Will continue to monitor s/s of withdrawal.
[2017-05-02 08:00] VITALS: BP 132/93
[2017-05-02] MEDS: OMEPRAZOLE 40MG PO SCH (08:44)
[2017-05-02] MEDS: MULTIVITAMINS,THERAPEUTIC TABLET PO SCH (08:44)
[2017-05-02] MEDS: AMLODIPINE 5MG PO SCH (08:44)
[2017-05-02] MEDS: THIAMINE HCL 100 MG TABLET PO SCH (08:44)
[2017-05-02] MEDS: FOLIC ACID 1 MG TABLET PO SCH (08:44)
[2017-05-02] MEDS: ESCITALOPRAM OXALATE 10 MG TABLET PO SCH (08:45)
--- NOTE | 2017-05-02 09:24 | NUR ---
Discharge Note- Patient has been discharged from [facility] at 0924. Pt is in stable condition, VS WNL. Denies suicidal and homicidal ideations at this time. Pt in good spirits and ready to leave. All documentation has been completed, paperwork signed and dated. Pt left with all his belongings, medications, and prescriptions. Pt discharged on 05/02/2017 at 0924. has been notified.
== END 2017-05-02 09:24 | disposition other institution (70) | DRG 895 ==
LOC: SRC 19:54
PROVIDERS: ADMIT Internal Medicine; ATTEND Internal Medicine
PROC: HZ2ZZZZ Detoxification Services for Substance Abuse Treatment (ICD-10-PCS; principal; 2017-04-25)
PROC: HZ41ZZZ Group Counseling for Substance Abuse Treatment, Behavioral (ICD-10-PCS; 2017-04-26)
PROC: HZ31ZZZ Individual Counseling for Substance Abuse Treatment, Behavioral (ICD-10-PCS; 2017-04-28)
DX: F10.239 Alcohol dependence with withdrawal, unspecified (principal); I15.9 Secondary hypertension, unspecified; F33.1 Major depressive disorder, recurrent, moderate; E29.1 Testicular hypofunction; E86.0 Dehydration; K29.20 Alcoholic gastritis without bleeding; Y90.9 Presence of alcohol in blood, level not specified; F17.210 Nicotine dependence, cigarettes, uncomplicated; K44.9 Diaphragmatic hernia without obstruction or gangrene; I25.10 Atherosclerotic heart disease of native coronary artery without angina pectoris; F13.10 Sedative, hypnotic or anxiolytic abuse, uncomplicated; Z81.8 Family history of other mental and behavioral disorders; Z81.1 Family history of alcohol abuse and dependence; Z98.1 Arthrodesis status; Z91.89 Other specified personal risk factors, not elsewhere classified; M50.90 Cervical disc disorder, unspecified, unspecified cervical region
CPT/HCPCS: 36415; 70030-TC; 80307; 80361; 83735; 85025; 86580; 86592; 86705; 86803; 87340; 87806; G0480; Q0163